=== PATIENT | female | born 1960 | race Caucasian/White ===

== ENCOUNTER → 2019-07-31 | Day surgery (SDC) | payer BC ==
[2019-07-31 13:40] VITALS: RESP 16
[2019-07-31 16:01] VITALS: BP 163/95; PULSE 86; TEMP 97.6
--- NOTE | 2019-07-31 17:10 | MM ---
EXAMINATION TYPE: MG stereo VAD BX LT MG stereo VAD BX addl LT DATE OF EXAM: 07/31/2019 COMPARISON: 07/19/2019 and 01/05/2017 CLINICAL HISTORY: 59-year-old female referred for stereotactic core needle biopsy of extensive left b reast microcalcifications. TECHNIQUE: Stereotactic guided core biopsy of 2 sites in the left breast. FINDINGS: The procedure of stereotactic guided core biopsy was explained to the patient. Benefits, a lternatives, and risks were discussed. An informed consent was then obtained. Multicentric microcalcifications are present in the left breast. SITE A: Posterior LOQ: Dominant group located in the posterior lower outer quadrant is targeted first . CC from below approach is utilized. I performed the localization, then surgeon, Dr. Luis taveras ormed the remainder of the procedure. A vacuum assisted biopsy gun was used to obtain multiple core samples. A secure ary clip was placed. SITE B: Anterior Medial: Second site was chosen based on its distance and different quadrant from the first site. CC from below approach is utilized. I performed the localization, then surgeon, Dr. Helen Rodrigues performed the remainder of the procedure. A vacuum assisted biopsy gun was used to obtain mul tiple core samples. A Trimark clip was placed. The patient tolerated the procedure well without any immediate complication. The patient was kept in the radiology department for short stay after the procedure and then discharged home in stable condi tion. Targeted calcifications are identified in both specimen mammograms. Post biopsy mammogram shows the clips to appear in satisfactory position relative to the targeted are a of concern on the preprocedure images. The clips are by approximately 6 cm though the ex tent of calcifications measures up to 10 cm. IMPRESSION: SUCCESSFUL, UNCOMPLICATED STEREOTACTIC GUIDED CORE BIOPSY OF 2 AREAS OF VERY SUSPICIOUS MULTICENTRIC CALCIFICATIONS IN THE LEFT BREAST. CLIPS ARE BY 6 CM THOUGH THE EXTENT OF CALCIFICATIONS ME ASURES UP TO 10 CM. FULL PATHOLOGY RESULTS TO FOLLOW.
--- NOTE | 2019-07-31 17:13 | P.OP ---
Date of Procedure: 07/31/19 Preoperative Diagnosis: Mammographic area of microcalcifications of concern in the left breast diffuse throughout the breast with a more focal area in the lower outer aspect of the left breast Postoperative Diagnosis: Same Procedure(s) Performed: Stereotactic core biopsy of 2 sites of concern of microcalcifications in the left breast Anesthesia: local Surgeon: Dorina Mancuso Estimated Blood Loss (ml): 0 Pathology: other (Breast tissue from 2 sites both with microcalcifications; site A is left lower outer marked with a secure markSite B is left medial anterior marked with a try ary) Condition: stable (2 sites of biopsy left breast, left outer site a marked with secure ary Site B medial anterior left marked with a tri-ary) Disposition: same day Indications for Procedure: Microcalcifications left breast Operative Findings: Diffuse microcalcifications left breast with a more focal area in the lower outer aspect Description of Procedure: Jeremy is a 59-year-old white female who on mammogram was noted to have diffuse microcalcifications through the left breast. Multifocal area was noted in the lower outer aspect and biopsy was recommended. Risks and benefits of stereotactic core biopsy were discussed with the patient and she wished to proceed. The patient was taken to the stereotactic core biopsy room and positioned prone on the low. Table. [employer] Handicapper film was obtained and a CC from below fashion, the area of more focal calcifications in the lower outer aspect of the left breast was identified. The area was targeted. The breast was prepped using Betadine. A 19-gauge vacuum-assisted core rotated biopsy needle was utilized to obtain the specimens. 10 mL of 1% lidocaine was used to anesthetize the area. After the needle was fired confirmation was in the correct location was obtained radiographically. multiple core biopsies were obtained. Radiograph of the specimen revealed that the area had been adequately sampled. A secure ary clip was left behind. This was designated as site A. Site A/left lower outer breast/marked with secure ary The anterior medial aspect of the breast was sampled following this. This was a more remote area of calcifications to the more focal site but felt to be indicative of the other calcifications throughout the breast. The approach was CC from below. The area was visualized on the green plumber film. The area was targeted. The breast was prepped using Betadine. 1% lidocaine was used to anesthetize the area of concern. 10 mL a 9-gauge vacuum-assisted core rotating biopsy needle was driven to the correct coordinates. The needle was fired and radiographs revealed that the needle was in the correct location. Core biopsies were obtained. Radiograph the specimen revealed. Concerta been adequately sampled. A try ary marker was placed. Site B/medial anterior left breast/marked with tri ary The patient tolerated the procedure in stable condition. Pathology specimens were sent to pathology. Patient will follow with Dr. Smith in 1 week. site A /left lower quadrant /marked with secure ary Site B/ medial anterior left breast/ marked with tri ary
== END ==
LOC: RADMAMWWP 13:18
PROVIDERS: ATTEND Surgery
DX: C50.512 Malignant neoplasm of lower-outer quadrant of left female breast (principal)
CPT/HCPCS: 88305; 88342; 88341; 19081; 19082; A4648; J2001

== ENCOUNTER → 2019-08-10 | Outpatient (CLI) | payer BC ==
[2019-08-10 15:37] VITALS: BP 188/123; PULSE 90; RESP 18; TEMP 97.8
--- NOTE | 2019-08-10 16:25 | P.PN ---
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 The area of abnormalities and approximately 10 cm. After review of the mammogram and discussion with the patient is felt that a mastectomy is the best option. We have discussed skin sparing versus nipple sparing mastectomy. We have also discussed mastectomy without reconstruction. The patient is uncertain as to whether she wants to pursue reconstruction. The patient is also concerned about having BRCA1 testing as her mother of breast cancer and had breast cancer twice. Her case was discussed with Dr. Sanchez and she is going to have blood drawn for BRCA1 testing today. She is going to be scheduled for an appointment Dr. Montes from plastic surgery. She is going to follow-up. 3 weeks. Objective - Vital Signs Vital signs: Vital Signs Temp 97.8 F 08/10/19 15:31 Pulse 90 08/10/19 15:31 Resp 18 08/10/19 15:31 BP 188/123 08/10/19 15:31 Pulse Ox 95 08/10/19 15:31 Intake & Output 08/09/19 08/10/19 08/10/19 18:59 06:59 18:59 Weight 81.647 kg - Exam BMI 30.9 - Constitutional General appearance: Present: average body habitus - EENT Eyes: Present: EOMI ENT: Present: hearing grossly normal - Respiratory Respiratory: bilateral: CTA - Cardiovascular Rhythm: regular Heart sounds: normal: S1, S2 - Musculoskeletal Musculoskeletal: Present: gait normal - Psychiatric Psychiatric: Present: A&O x's 3, appropriate affect, intact judgment & insight - Additional findings Additional findings: Left breast with mild ecchymosis at biopsy site No evidence of infection Assessment and Plan Assessment: Impression: 1. DCIS extensive left breast 2. Right mammogram no evidence of any radiographic lesions of concern 3. Family history mother of breast cancer Plan: 1. Patient expressed interest in BRCA1 testing, I have discussed this with Dr. Sanchez and patient is sent for blood to be drawn today for the testing 2. I discussed with the patient that insurance may not cover the BRCA1 testing she understands 3. Patient's case to be presented at tumor board 4. Patient to be scheduled for mastectomy uncertain as to whether she wants reconstruction 5. Appointment with plastic surgery Risks and benefits of surgical procedure were discussed with the patient. Secondary to the extensive nature of the DCIS I have recommended sentinel node biopsy possible axillary node dissection and a mastectomy. The patient has also been given the option of seeing plastic surgery which will be scheduled in the near future. We have discussed subpectoral implant reconstruction with skin sparing or nipple sparing mastectomy. Cc: Ting Garcia Time with Patient: Greater than 30
--- NOTE | 2019-08-30 08:25 | P.PN ---
Progress Note - Text Progress Note Date: 08/30/19 On the visit of 08-10-19, please note that Encounter: 40 minutes, greater than 50% of time spent in counseling and planning regarding extensive nature of DCIS treatment, and options.
== END ==
LOC: WWCWWP 15:23
PROVIDERS: ATTEND Surgery
DX: Z53.9 Procedure and treatment not carried out, unspecified reason (principal)

== ENCOUNTER → 2019-11-02 | Outpatient (CLI) | payer BC ==
--- NOTE | 2019-11-02 15:52 | P.PN ---
Subjective Progress Note Date: 11/02/19 Principal diagnosis: DCIS left breast Cady is a 59-year-old white female who had a routine screening mammogram performed on 2419. This revealed numerous calcifications within the left breast. She was seen in consultation for this for Dr. Scott. She had an additional diagnostic studies the left breast performed which again revealed calcifications with some more focal area in the lower outer aspect of the left breast for which biopsy was recommended. No lesions of concern were identified in the right breast. The patient's last mammogram was in 2016 which did not show the calcifications. The patient did not feel any lumps masses or nodules in her breast for which she is concerned. She was not complaining of any pain in her breast. She had no complaint of any nipple discharge or skin changes. She did not complaining of any trauma or infection in the breast. Underwent Stereotactic Core Biopsy of 2 Sites of the Left Breast in July on the 2019. Pathology Revealed Intermediate Grade Ductal Carcinoma In Situ with Central Necrosis As Site a and Features Were Suspicious for but Not Diagnostic of Microinvasion, Pathology revealed Intermediate Grade Ductal Carcinoma In Situ with [place] Form Necrosis. The Nuclear Grade Was 3 This Is ER Positive [place] Positive Does Not Appear That HER-2/romain Studies Were Performed. Her genetic testing was negative. The patient has considered this and would like to have bilateral mastectomy performed. She understands that there may be no cancer in the right breast and still wishes this to be removed. Caffiene: 12 oz/day down from 20 oz/day nicotine: none chocolate: intermittently Family history: 1. Mother: breast cancer bilateral both ER+, mets to liver, at 78 dx. in 60's 2. maternal grandfather: colon cancer Hormonal History: menarche; 16 , 1 miscarrage; age at 32, breast fed: yes menopause: 58 BCP: 15 years hormones: none Surgical History: 1. cervical cone 2. Medical History: none Social: smoke: none alcohol: occasional drugs: Occasional to sleep edible marijuana - Constitutional Constitutional: Denies chills, Denies fever - EENT Eyes: denies blurred vision, denies pain Ears: deny: decreased hearing, tinnitus Ears, nose, mouth and throat: Reports headache, Denies sore throat - Breasts Breasts: bilateral: as per HPI - Cardiovascular Cardiovascular: Denies chest pain, Denies shortness of breath - Respiratory Respiratory: Denies cough, Denies 7 - Gastrointestinal Gastrointestinal: Denies abdominal pain, Denies diarrhea, Denies nausea, Denies vomiting - Genitourinary (Female) Genitourinary: Denies dysuria, Denies hematuria - Menstruation Menstruation: Reports postmenopausal - Musculoskeletal Musculoskeletal: Denies myalgias - Integumentary Integumentary: Denies pruritus, Denies rash - Neurological Neurological: Denies numbness, Denies weakness - Psychiatric Psychiatric: Denies anxiety, Denies depression - Endocrine Endocrine: Denies fatigue, Denies weight change - Hematologic/Lymphatic Comment: none - Allergic/Immunologic Allergic/Immunologic: Reports seasonal allergies Past Medical History Past Medical History: No Reported History History of Any Multi-Drug Resistant Organisms: None Reported Past Surgical History: Section Additional Past Surgical History / Comment(s): dilatation and curetagge Past Anesthesia/Blood Transfusion Reactions: No Reported Reaction Past Psychological History: No Psychological Hx Reported Past Alcohol Use History: Occasional Additional Past Alcohol Use History / Comment(s): quit 2004 Past Drug Use History: Marijuana Additional Drug Use History / Comment(s): marijuana occasional - Past Family History Mother Family Medical History: Cancer Additional Family Medical History / Comment(s): mother Breast Medications and Allergies Home Medications Medication Instructions Recorded Confirmed Type Budesonide/Formoterol Fumarate 2 puff INHALATION BID 07/24/19 07/27/19 History [Symbicort 160-4.5 Mcg Inhaler] Fexofenadine HCl [Karol Allergy] 180 mg PO DAILY 07/24/19 07/27/19 History Fluticasone Nasal [place] [Flonase 1 spray EA NOSTRIL DAILY 07/24/19 07/27/19 History Nasal [place]] Aspirin 81 mg PO DAILY 07/27/19 07/27/19 History Cholecalciferol [Vitamin D3 (25 2,000 unit PO DAILY 07/27/19 07/27/19 History Mcg = 1000 Iu)] Multivitamin [Multivitamins Adult 1 each PO DAILY 07/27/19 07/27/19 History Gummies] Allergies Allergy/AdvReac Type Severity Reaction Status Date / Time No Known Allergies Allergy Verified 07/27/19 10:41 Objective - Constitutional General appearance: Present: cooperative - EENT Eyes: Present: EOMI ENT: Present: hearing grossly normal - Neck Neck: Present: normal ROM - Respiratory Respiratory: bilateral: CTA - Cardiovascular Rhythm: regular Heart sounds: normal: S1, S2 - Gastrointestinal General gastrointestinal: Present: normal bowel sounds, soft - Integumentary Integumentary: Present: normal turgor - Musculoskeletal Musculoskeletal: Present: gait normal - Psychiatric Psychiatric: Present: A&O x's 3, appropriate affect, intact judgment & insight - Additional findings Additional findings: breast exam: BRA 38C inspection no nipple inversion, grade 2 ptosis palpation: right breast: Multi-positional exam fibrocystic changes, no dominant masses or nodules of concern Right axilla: No adenopathy of concern Left breast: Multiple position of exam fibrocystic changes, no dominant masses or nodules of concern Left axilla: No adenopathy of concern Assessment and Plan Assessment: Impression: 1. Left breast ductal carcinoma in situ extending over an approximately 10 cm area 2. Questionable microinvasion of ductal carcinoma in situ left breast 3. Right breast fibrocystic breast changes Plan: 1. Bilateral mastectomy skin sparing is immediate subpectoral implant reconstruction 2. [place] node injection left breast, left axillary sentinel node biopsy, possible left axillary node dyed section Risk and benefits of the procedure were discussed with the patient. These include but are not limited to bleeding, infection, possible reaction to the anesthetic. The patient understands the risk of the coronal virus and wishes to proceed. CC: DR. Scott encounter 30 minutes, > 50% of time spent on planning and counselling Time with Patient: Greater than 30
== END | disposition home or self-care (01) ==
LOC: WWCWWP 14:47
PROVIDERS: ATTEND Surgery
DX: Z53.9 Procedure and treatment not carried out, unspecified reason (principal)

== ENCOUNTER → 2019-11-09 | Outpatient (CLI) | payer BC | END | disposition home or self-care (01) | LOC: LABWHC1 14:16 | PROVIDERS: ATTEND Surgery | DX: Z11.59 Encounter for screening for other viral diseases (principal) ==

== ENCOUNTER 2019-11-13 08:00 | Observation (INO) | payer BC ==
[2019-11-09 16:32] VITALS: BMI 31.7
[~2019-11-13 08:00] MED LIST: DEXAMETHASONE SOD PHOSPHATE 10 MG/ML 1 ML VIAL IV ONE; HEPARIN SODIUM,PORCINE 5,000 UNIT/ML 1 ML VIAL SQ ONE; LACTATED RINGERS 1,000 ML IV SCH; LIDOCAINE 1% (10MG/ML) FOR IV START INTRADERMA PRN; ONDANSETRON 4 MG/2 ML VIAL IVP ONE; Pre Op ABX Message 1 EACH MISC MISCELLANE ONE; SCOPOLAMINE 1.5MG/72HR PATCH TRANSDERM ONE
[2019-11-13] MEDS ORDERED: ceFAZolin 2 GM in SODIUM CHLORIDE 0.9% 100 ML IVPB ONE (08:29)
[2019-11-13 09:03] LABS: Appearance,Urine Clear (Clear); Bacteria,Urine Rare /hpf; Bilirubin,Urine Negative (Negative); Blood,Urine Small (Negative); Color,Urine Light Yellow; Glucose,Urine (UA) Negative (Negative); Ketones,Urine Negative (Negative); Leukocyte Esterase,Urine Small (Negative); Mucus,Urine Rare /hpf; Nitrite,Urine Negative (Negative); PH, Urine 5.5 (5.0-8.0); Protein,Urine Negative (Negative); RBC,Urine 1 /hpf (0-5); Specific Gravity,Urine 1.011 (1.001-1.035); Squamous Epithelial Cell,Urine 1 /hpf (0-4); Urobilinogen,Urine <2.0 mg/dL (<2.0); WBC,Urine 3 /hpf (0-5)
[2019-11-13] MEDS ORDERED: MIDAZOLAM 2 MG/2 ML VIAL IVP ONE (09:17)
[2019-11-13] MEDS ORDERED: fentaNYL (PF) 50 MCG/ML 2 ML AMP IVP ONE (09:17)
[2019-11-13] MEDS ORDERED: MIDAZOLAM 2 MG/2 ML VIAL ONE (09:27)
[2019-11-13] MEDS ORDERED: ePHEDrine SULFATE/0.9% NACL/PF 50 MG/5 ML SYRINGE IV ONE (09:27)
[2019-11-13] MEDS ORDERED: PROPOFOL 10 MG/ML 20 ML VIAL IV ONE (09:27)
[2019-11-13] MEDS ORDERED: SUCCINYLCHOLINE CHLORIDE 100 MG/5 ML SYR IV ONE (09:27)
[2019-11-13] MEDS ORDERED: fentaNYL (PF) 50 MCG/ML 2 ML AMP ONE (09:27)
[2019-11-13] MEDS ORDERED: LIDOCAINE 1% INJ 10MG/ML (20 ML MDV) ONE (09:27)
[2019-11-13] MEDS ORDERED: HYDROmorphone (PF) 1 MG/ML ONE (09:27)
[2019-11-13] MEDS ORDERED: ROPIVACAINE 5 MG/ML 30 ML VIAL ONE (09:27)
--- NOTE | 2019-11-13 09:30 | P.ANPRN ---
Procedure Note - Anesthesia - Nerve Block Performed Bilateral Pec 1 and Pec 2 Single Time Out Performed: Yes Date of Procedure: 11/13/19 Procedure Start Time: :17 Procedure Stop Time: :27 Location of Patient: PreOp Indication: Acute Post-Operative Pain, Requested by Surgeon Sedation Type: Sedate with meaningful contact maintained Preparation: Sterile Prep Position: Supine Catheter: None Needle Types: Pajunk Needle Gauge: 21 Ultrasound used to visualize needle placement: Yes Ultrasound used to observe medication spread: Yes Injectate: 0.5% Ropivacaine (see comment for volume) (ropivacaine 0.5% 20 CC + DECADRON 4MG--- PER SIDE. 10 CC INJECTED IN PECS 1 PLANE, 10 CC IN PECS 2 PLANE) Blood Aspirated: No Pain Paresthesia on Injection Noted: No Resistance on Injection: Normal Image Stored and Saved: Yes Events: Uneventful and Well Tolerated
--- NOTE | 2019-11-13 09:39 | NM ---
EXAMINATION TYPE: NM sentinel node injection DATE OF EXAM: 11/13/2019 COMPARISON: Left breast biopsy dated 07/31/2019 HISTORY: Biopsy-proven left breast cancer with request for sentinel node injection TECHNIQUE AND FINDINGS: The procedure of sentinel lymph node injection was explained to the patient. The benefits, alternatives, and risks were discussed. An informed consent was then obtained. Overlying skin is cleaned with sterile alcohol. Following this, 501 uCi Tc99m Tilmanocept was inject ed in the upper outer aspect of the left nipple intradermally. The patient tolerated the procedure well without any immediate complication. The patient was kept in the radiology department for short stay after the procedure and then taken to surgery for surgical p rocedure what is presumed intraoperative gamma probe will be used for sentinel lymph node detection. IMPRESSION: Left breast radiotracer injection for sentinel node localization as above.
[2019-11-13] MEDS ORDERED: LACTATED RINGERS 1,000 ML IV ONE ×3 (09:56→13:14)
--- NOTE | 2019-11-13 09:56 | P.NAPBC ---
NAPBC Queries - NAPBC Queries Was patient's case review presented at [facility] tumor board? If no, comment.: Yes Was patient's pathology reviewed at [facility]? If no, comment.: Yes Was breast conservation surgery offered? If no, comment.: No ( DCIS with extensive mamographic changes) Was sentinel node biopsy offered? If no, comment.: Yes Was diagnosis confirmed by percutaneous core biopsy? If no, comment.: Yes Is patient mastectomy patient?: Yes Was a preop referral to reconstructive surgeon offered?: Yes Clinical Stage: stage 0
[2019-11-13] MEDS ORDERED: NALOXONE 0.4 MG/ML 1 ML VIAL IV PRN (12:20)
[2019-11-13] MEDS ORDERED: HYDROmorphone 0.5 MG/0.5 ML SYRINGE IVP PRN (12:20)
--- NOTE | 2019-11-13 12:20 | P.OP ---
Date of Procedure: 11/13/19 Preoperative Diagnosis: Left breast DCIS, right breast fibrocystic breast changes Postoperative Diagnosis: Same Procedure(s) Performed: Bilateral skin sparing mastectomy, left sentinel node biopsy Anesthesia: AZUL Surgeon: Dorina Mancuso Estimated Blood Loss (ml): 20 IV fluids (ml): 1,500 Pathology: other (bilateral breast tissue, sentinal node biopsy left) Condition: stable Disposition: floor Indications for Procedure: Extensive DCIS left breast Operative Findings: Dense breast tissue bilaterally Description of Procedure: Cady is a 59-year-old white female who had a biopsy-proven DCIS of the left breast. There were extensive suspicious microcalcifications and the biopsy bordered on possible microinvasion. She opted for bilateral mastectomy with subpectoral implant reconstruction. [place] node biopsy and the left was recommended. The patient was taken to the operating room following removal, and injection of the periareolar region on the left for lymphatic mapping. The breast were prepped and draped in a sterile fashion as well as the left axilla. The right breast was approached initially. A circumareolar incision was made. Skin flaps were developed down to the pectoralis major muscle circumferentially. Hemostasis was attained using electrocautery device as well as the Harmonic scalpel. After dissection had been performed to the pectoralis muscle the breast was removed from medial to lateral being careful to maintain hemostasis using electrocautery device. Small vessel was identified and this was oversewn with a 3-0 Vicryl suture. Following this after assured that hemostasis was attained the wound was packed using a moist lap sponge. The left breast which was the side with the DCIS was then approached. The sentinel node biopsy was performed initially. Small incision was made in the axilla after the area of greatest radioactivity was identified. Dissection was performed down to this area. The radio-active lymph node was identified and rem jennifer. The 10 second count on the radioactive lymph node was approximately 450. The background count was minimal. A larger palpable node was identified and removed as well. After being assured that hemostasis was obtained the wound was well irrigated. A left breast circumareolar incision was then performed. Skin flaps were developed down to the pectoralis major muscle. The breast was removed from medial to lateral off the pectoralis muscle. Hemostasis was attained using the electrocautery device as well as the Harmonic scalpel. At the termination of this the wound was well irrigated and examined for hemostasis. After being assured that hemostasis was attained several smaller vessels were oversewn using a 3-0 Vicryl suture. The area of the axilla was closed using deep 3-0 Vicryl willis ture followed by 40 skin Monocryl suture. Both mastectomy sites were again examined for hemostasis, a small amount of additional tissue was removed from the right side. After being assured that hemostasis was attained Dr. Montes entered for breast reconstruction.
[2019-11-13] MEDS: ONDANSETRON 4 MG/2 ML VIAL IVP PRN ×2 (14:08→22:59)
[2019-11-13] MEDS: HYDROmorphone 0.5 MG/0.5 ML SYRINGE IVP PRN ×2 (14:08→18:04)
[2019-11-13] MEDS: HEPARIN SODIUM,PORCINE 5,000 UNIT/ML 1 ML VIAL SQ SCH ×2 (15:55→22:59)
--- NOTE | 2019-11-13 16:11 | OP ---
OPERATIVE REPORT DATE OF PROCEDURE: 11/13/2019. SURGEON: Juni Williamson. PREOPERATIVE DIAGNOSES: 1. Acquired loss of right and left breast. 2. Breast cancer, left breast. POSTOPERATIVE DIAGNOSES: 1. Acquired loss of right and left breast. 2. Breast cancer, left breast. OPERATIVE PROCEDURES: 1. Immediate insertion of tissue cnc applications engineer for breast reconstruction, right breast following mastectomy with subsequent outpatient expansion. 2. Immediate breast reconstruction of left breast with insertion of tissue cnc applications engineer and subsequent outpatient expansion following mastectomy. 3. Implantation of reconstructive graft for right and left breast reconstruction. OPERATIVE INDICATIONS: The patient is a 59-year-old female with ductal carcinoma in situ of the left breast. She was referred to my care as the patient plans bilateral mastectomy procedures. The patient was seen and evaluated in consultation prior to the COVID 19 pandemic, unfortunately her surgery has been rescheduled several times due to the pandemic. She is now ready to proceed with her bilateral mastectomy procedure, sentinel lymph node surgery for the left knee and immediate reconstruction following the mastectomies. The patient understands this is a staged reconstructive technique and there are potential risks and complications with today's surgery and future surgeries. She has requested I perform the surgery. OPERATIVE PROCEDURE SUMMARY: The patient is seen presurgical area, markings made. procedure reviewed. All questions answered. She was transported to the operative room where she was placed in supine position. Following induction of general endotracheal anesthesia, the patient is prepped and draped in usual fashion. Dr. Mancuso and her surgical team then proceeded with the right simple mastectomy, left simple mastectomy and left sentinel lymph node excision. Once those procedures were complete, I then entered the operative operating room. All sponge and needle counts and prior procedure were correct. New instruments were obtained and new drapes placed around the periphery of the patient. She was under general endotracheal anesthesia in supine position, laparotomy pads placed in the right and left mastectomy wounds were removed. There was no active bleeding. Both cavities were irrigated. Reconstruction was initiated on the right side, identifying the pectorals major muscle joined the chest wall lateral aspect, loose areolar connective tissue divided with cautery allowing entry into the potential plane between the pectorals major and minor muscles which was bluntly developed. Medial attachment fibers of the pectorals major to ribs were released with cautery and all inferior attachments for sufficient muscle coverage of the cnc applications engineer. Additional muscle tissue was required inferomedially, rectus abdominis muscle and fascia inferoaterally, external abdominal oblique muscle fascia and laterally serrated anterior muscle fascia. Once a sufficient size submuscular pocket was created, dissection stopped. Irrigation was performed. Hemostasis was excellent. The site was packed open with 2 laparotomy sponges, attention is turned towards the left side. Again, the left pectorals major muscle was identified where it joined the chest wall, lateral aspect, loose areolar connective tissue divided with cautery. This allowed entry into the potential plane between the pectorals major and minor muscles and bluntly developed. Medial attachment fibers of the pectorals major muscle to ribs and all inferior attachment fibers to the ribs were released, again for sufficient submuscular coverage of the cnc applications engineer. Additional muscle tissue was recruited, inferomedially rectus abdominal muscle and fascia, inferolaterally external abdominal oblique muscle fascia and laterally serrated anterior muscle fascia were all developed. Once a sufficient size submuscular pocket was created, dissection stopped, irrigation performed. Hemostasis was excellent. The cavities were sized, minor adjustments made to optimize symmetry. Once this was completed, gloves changed. The tissue cnc applications engineer was opened on the field. Both expanders were from the [employer], reference number [id number]. The right-sided serial number was [id number]. The left-sided serial number was [id number]. The right-sided device was placed first after first extracting all air and irrigating the cnc applications engineer 50 mL 0.9 normal saline instilled. The cnc applications engineer was inserted under direct vision and position optimized and then the left-sided cnc applications engineer inserted into the left reconstructive cavity in similar fashion. Good symmetrical placement was obtained. The muscle flap tissue on the right and left side could not be closed over the expanders without significant tension. Therefore SurgiMend reconstructive graft measuring 10 x 15 cm fenestrated and then was opened on the field. We vitalized room temperature saline, once ready divided into 2 equal portions through the midline and used to span the area where the muscle could not be approximated without undue tension. In a modified inferior lateral sling technique, the SurgiMend was placed over each cnc applications engineer and underneath the muscle flap tissue. The muscle flap tissue was advanced over the SurgiMend until achieving minimal tension and then sutured in place using interrupted and short running 3-0 Vicryl on each side. Complete coverage was now obtained. Additional irrigation performed. Hemostasis was excellent. A 19 round [place] channel drains were opened on the field and inserted into the surgical field and brought separate stab incisions in the right or left anterior lateral chest wall insertion, placed with 2-0 Prolene. The mastectomy circumareolar incisions were now closed using 2-0 Prolene continuous deep dermal pursestring suture followed by finer approximation of the epidermal edges with elissa. The drains were connected to close bulb suction patent. The surgical field was cleansed with saline, dried postoperative bandages placed using Kerlix squares and 3 Medipore tape, drain sponges as well. Steri-Strips were placed over the patient's left axillary lymph node dissection site and followed by Kerlix squares secured with tape. The patient was then awakened from anesthetic, extubated, and transferred to the recovery room in good condition stable vital signs. ESTIMATED BLOOD LOSS: 30 mL. There were no complications. MMODL / IJN: [id number] /
[2019-11-13] MEDS: SYMBICORT 160-4.5 MCG INHALER INHALATION SCH (20:44)
[2019-11-13] MEDS ORDERED: LISINOPRIL 10 MG TAB PO SCH (21:00)
[2019-11-13] MEDS: D5-0.45% NACL WITH KCL 20MEQ/L 1,000 ML IV SCH (21:49)
--- NOTE | 2019-11-13 22:11 | P.CONS ---
History of Present Illness - Reason for Consult Consult date: 11/13/19 Medical management Requesting physician: Dorina Martins - Chief Complaint Bilateral mastectomy - History of Present Illness Consultation: This is a very pleasant 59-year-old patient whose chronic stable medical conditions include hypertension, hyperlipidemia, mild persistent asthma. Patient had just finished a course of antibiotic for 3 days for UTI. Patient is found to have in situ carcinoma and today underwent bilateral mastectomy with expanders placed by Dr. Sánchez norman. Postprocedure patient has 2 YAHAIRA drains on both the sides. Pain is controlled. No nausea vomiting. No chest pain or shortness of breath. Laying in bed. Denies any fever and chills. No cardiac history. Patient's had made urine since the procedure. Review of systems: GEN.: None EYES: None HEENT: None NECK: None RESPIRATORY: None CARDIOVASCULAR: None GASTROINTESTINAL: None GENITOURINARY: None MUSCULOSKELETAL: None LYMPHATICS: None HEMATOLOGICAL: None PSYCHIATRY: None NEUROLOGICAL: None Past medical history to include: Hypertension, hyperlipidemia, persistent asthma, left breast cancer diagnosed in July of this year. Social history: Patient was as a dispatcher. . Does take marijuana sometimes for her insomnia. Physical examination: VITAL SIGNS: 97.5, 98, 18, 144/91, 97% on 1 L GENERAL: [BMI 31.9, laying in bed not in distress]. EYES: [Pupils equal. Conjunctiva kristina]l. HEENT: [External appearance of nose and ears normal, oral cavity grossly normal]. NECK: [JVD not raised; masses not palpable]. HEART: [First and second heart sounds are normal; no edema]. LUNGS:[ Respiratory rate normal; clear to auscultation]. CHEST wall: Dressing over the chest wall with YAHAIRA drains on either side ABDOMEN: [Soft, nontender, liver spleen not palpable, no masses palpable]. PSYCH: [Alert and oriented x3; mood and affect kristina]l. NEUROLOGICAL: [Cranial nerves grossly intact; no facial asymmetry, power and sensation grossly intact]. LYMPHATICS: [No lymph nodes palpable in the axilla and neck] INVESTIGATIONS, reviewed in the clinical context: UA positive for leukoesterase small, COVID-19 PCR-not detected Assessment: -Bilateral mastectomy with tissue spindraw operator. For in situ carcinoma. -Obesity BMI 31.9 -Essential hypertension -Hyperlipidemia -Mild persistent asthma Plan: Care was discussed with the patient. Questions answered. Patient comfortable. Patient's inability to be resumed. Patient is to follow the family doctor upon discharge. Thank you Dr. Martins Past Medical History Past Medical History: Asthma, Cancer, Hyperlipidemia, Hypertension Additional Past Medical History / Comment(s): Allergy related asthma. Hx cervical cancer insitu 1988 est. Cancer of lt breast 07/2019. Borderline elev cholesterol. UTI diagnosed 11/08/19, on 3 day AB. History of Any Multi-Drug Resistant Organisms: None Reported Past Surgical History: Section Additional Past Surgical History / Comment(s): D&C. Dental proc. Cervical conization. RK elton eyes. Colonoscopy. bilateral Mastectomy Past Anesthesia/Blood Transfusion Reactions: Postoperative Nausea & Vomiting (PONV) Additional Past Anesthesia/Blood Transfusion Reaction / Comm: PONV W/ gas given for dental proc Past Psychological History: No Psychological Hx Reported Smoking Status: Former smoker Past Alcohol Use History: Occasional Additional Past Alcohol Use History / Comment(s): Smoked at age 20, < 1/2 ppd, quit 2004 Past Drug Use History: Marijuana Additional Drug Use History / Comment(s): marijuana occasional for sleep - Past Family History Mother Family Medical History: Cancer Additional Family Medical History / Comment(s): mother Breast Medications and Allergies Home Medications Medication Instructions Recorded Confirmed Type Budesonide/Formoterol Fumarate 2 puff INHALATION BID 07/24/19 11/13/19 History [Symbicort 160-4.5 Mcg Inhaler] Fexofenadine HCl [Karol Allergy] 180 mg PO DAILY 07/24/19 11/09/19 History Cholecalciferol [Vitamin D3 (25 2,000 unit PO DAILY 07/27/19 11/13/19 History Mcg = 1000 Iu)] Fluticasone Furoate [Flonase 1 spray EA NOSTRIL DAILY 11/09/19 11/09/19 History Sensimist] Lisinopril [Prinivil] 10 mg PO DAILY 11/09/19 11/09/19 History Exemestane [Aromasin] 25 mg PO DAILY 11/12/19 11/12/19 History Allergies Allergy/AdvReac Type Severity Reaction Status Date / Time acetaminophen [From Vicodin] AdvReac Nausea & Verified 11/13/19 08:23 Vomiting hydrocodone [From Vicodin] AdvReac Nausea & Verified 11/13/19 08:23 Vomiting Physical Exam Vitals: Vital Signs Temp Pulse Resp BP Pulse Ox 11/13/19 21:48 150/83 11/13/19 19:30 97.5 F L 98 18 144/91 97 11/13/19 18:40 99 18 155/92 89 L 11/13/19 17:40 94 18 139/89 95 11/13/19 16:40 94 18 134/85 94 L 11/13/19 16:11 91 18 164/87 96 11/13/19 15:45 89 18 147/90 98 11/13/19 15:30 84 18 148/86 99 11/13/19 15:15 79 18 145/84 98 11/13/19 15:00 87 18 135/87 100 11/13/19 14:45 98 F 76 18 136/83 98 11/13/19 14:17 79 16 132/77 99 11/13/19 14:02 80 16 128/73 100 11/13/19 14:00 18 11/13/19 13:46 90 16 126/72 98 11/13/19 13:35 97.3 F L 93 14 130/75 94 L 11/13/19 09:25 76 17 184/95 100 11/13/19 08:27 97.7 F 89 17 180/95 98 Intake and Output 11/13/19 11/13/19 11/13/19 06:59 14:59 22:59 Intake Total 2900 Output Total 295 1598 Balance 2605 -1598 Intake: IV 2900 Output: Drainage 40 58 yahaira left 20 38 yahaira right 20 20 Urine 225 1540 Estimated Blood Loss 30 Other: # Voids 1 Weight 84.397 kg 84.397 kg Results Labs: Abnormal Lab Results - Last 24 Hours (Table) 11/13/19 Range/Units 08:35 Urine Blood Small H (Negative) Ur Leukocyte Esterase Small H (Negative) Urine Bacteria Rare H (None) /hpf Urine Mucus Rare H (None) /hpf
[2019-11-13] MEDS: HYDROcodone/APAP 5-325MG 1 EACH TAB PO PRN (22:59)
[2019-11-14] MEDS: HYDROcodone/APAP 5-325MG 1 EACH TAB PO PRN ×2 (03:51→09:57)
[2019-11-14] MEDS: HEPARIN SODIUM,PORCINE 5,000 UNIT/ML 1 ML VIAL SQ SCH (08:04)
[2019-11-14 08:08] LABS: Basophils % (A) 0 %; Eosinophils # (A) 0.1 k/uL (0-0.7); Eosinophils % (A) 1 %; HCT 44.3 % (34.0-46.0); Lymphocytes # (A) 1.1 k/uL (1.0-4.8); Lymphocytes % (A) 8 %; MCHC 31.6 g/dL (31.0-37.0); MCV 94.8 fL (80.0-100.0); Mean Platelet Volume 7.4; Monocytes # (A) 0.9 k/uL (0-1.0); Monocytes % (A) 6 %; Neutrophils # (A) 12.7 k/uL (1.3-7.7); Neutrophils % (A) 85 %; Platelet Count 255 k/uL (150-450); RBC 4.67 m/uL (3.80-5.40); RDW 12.3 % (11.5-15.5); WBC 14.9 k/uL (3.8-10.6)
[2019-11-14 08:43] VITALS: RESP 18
[2019-11-14 08:57] VITALS: BP 148/81; PULSE 88; TEMP 98.4
[2019-11-14] MEDS ORDERED: Exemestane [Aromasin] 25 MG PO SCH (09:00)
[2019-11-14] MEDS: SYMBICORT 160-4.5 MCG INHALER INHALATION SCH (09:09)
[2019-11-14] MEDS: D5-0.45% NACL WITH KCL 20MEQ/L 1,000 ML IV SCH (10:07)
--- NOTE | 2019-11-14 11:08 | P.PN ---
Subjective Progress Note Date: 11/14/19 Principal diagnosis: Bilateral mastectomies with subpectoral implant reconstruction Cady is a 59-year-old white female status post bilateral mastectomies with subpectoral implant reconstruction and left sentinel node biopsy postop day #1. She has no complaints at this time. She is tolerating her diet without difficulty. Objective - Vital Signs Vital signs: Vital Signs Temp 98.4 F 11/14/19 08:11 Pulse 88 11/14/19 08:11 Resp 18 11/14/19 08:15 BP 148/81 11/14/19 08:11 Pulse Ox 99 11/14/19 08:11 Intake & Output 11/13/19 11/14/19 11/14/19 18:59 06:59 18:59 Intake Total 2900 Output Total 753 2175 545 Balance 2147 -2175 -545 Weight 84.397 kg Intake: IV 2900 Output: Drainage 98 85 45 yahaira left 58 35 15 yahaira right 40 50 30 Urine 625 2090 500 Estimated Blood Loss 30 Other: Voiding Method Toilet # Voids 2 - Exam BMI 31.9 - Constitutional General appearance: Present: cooperative - EENT Eyes: Present: EOMI ENT: Present: hearing grossly normal - Neck Neck: Present: normal ROM - Respiratory Respiratory: bilateral: CTA - Cardiovascular Rhythm: regular Heart sounds: normal: S1, S2 - Integumentary Integumentary Comment(s): Incisions clean and dry no evidence of erythema or infection YAHAIRA drains serous output - Psychiatric Psychiatric: Present: A&O x's 3, appropriate affect, intact judgment & insight - Labs CBC & Chem 7: 11/14/19 07:30 Labs: Abnormal Lab Results - Last 24 Hours (Table) 11/14/19 Range/Units 07:30 WBC 14.9 H (3.8-10.6) k/uL Neutrophils # 12.7 H (1.3-7.7) k/uL Assessment and Plan Assessment: Impression/plan: 1. Postop day #1 bilateral mastectomies with subpectoral implant reconstruction 2. Patient stable medically 3. Discharge home to be followed as outpatient 4. Follow-up with Dr. Smith in 1 week 5. Follow-up with Dr. Montes as per his office
--- NOTE | 2019-11-14 11:12 | P.DS ---
Providers Date of admission: 11/13/19 23:04 Expected date of discharge: 11/14/19 Attending physician: Dorina Mancuso Consults: 11/13/19 12:20 Consult Physician Routine Consulting Provider: Jarad Davila Consult Reason/Comments: medical managment Do you want consulting provider notified?: Yes Primary care physician: [facility] Course: Cady is a 59-year-old white female status post bilateral mastectomies with subpectoral implant reconstruction. She is done well postop and is being discharged home on postop day #1. Assessment: Patient doing well Procedures: Patient is status post bilateral mastectomies with subpectoral implant reconstruction and left sentinel node biopsy Patient Condition at Discharge: Stable Plan - Discharge Summary Discharge Rx Participant: Yes New Discharge Prescriptions: No Action Fexofenadine HCl [Karol Allergy] 180 mg PO DAILY Budesonide/Formoterol Fumarate [Symbicort 160-4.5 Mcg Inhaler] 2 puff INHALATION BID Cholecalciferol [Vitamin D3 (25 Mcg = 1000 Iu)] 2,000 unit PO DAILY Fluticasone Furoate [Flonase Sensimist] 1 spray EA NOSTRIL DAILY Lisinopril [Prinivil] 10 mg PO DAILY Exemestane [Aromasin] 25 mg PO DAILY Discharge Medication List Budesonide/Formoterol Fumarate [Symbicort 160-4.5 Mcg Inhaler] 2 puff INHALATION BID 07/24/19 [History] Fexofenadine HCl [Karol Allergy] 180 mg PO DAILY 07/24/19 [History] Cholecalciferol [Vitamin D3 (25 Mcg = 1000 Iu)] 2,000 unit PO DAILY 07/27/19 [History] Fluticasone Furoate [Flonase Sensimist] 1 spray EA NOSTRIL DAILY 11/09/19 [History] Lisinopril [Prinivil] 10 mg PO DAILY 11/09/19 [History] Exemestane [Aromasin] 25 mg PO DAILY 11/12/19 [History] Follow up Appointment(s)/Referral(s): Dorina Mancuso MD [STAFF PHYSICIAN] - 1 Week Activity/Diet/Wound Care/Special Instructions: Do not drive until seen by Dr. Smith May shower after 48 hours Teaching drain care/drain and record output every 24 hours and as needed Discharge Disposition: HOME SELF-CARE
--- NOTE | 2019-11-14 20:49 | P.PN ---
Progress Note - Text Progress Note Date: 11/14/19 - Chief Complaint Bilateral mastectomy - History of Present Illness Consultation: This is a very pleasant 59-year-old patient whose chronic stable medical conditions include hypertension, hyperlipidemia, mild persistent asthma. Patient had just finished a course of antibiotic for 3 days for UTI. Patient is found to have in situ carcinoma and today underwent bilateral mastectomy with expanders placed by Dr. Sánchez norman. Postprocedure patient has 2 CRISS drains on both the sides. Pain is controlled. No nausea vomiting. No chest pain or shortness of breath. Laying in bed. Denies any fever and chills. No cardiac history. Patient's had made urine since the procedure. Today-laying in bed. Feeling well. Has been out of bed. Did tolerate her breakfast. Her nausea vomiting. Pain is controlled. CRISS drains in place. Review of systems: Was done for constitutional, cardiovascular, GI, pulmonary. relevant finding as above Current medications reviewed in today's electronic records Physical examination: VITAL SIGNS: 98.4, 88, 16, 140-81, 99% on room air GENERAL: Laying in bed, comfortable EYES: [Pupils equal. Conjunctiva kristina]l. HEENT: [External appearance of nose and ears normal, oral cavity grossly normal]. NECK: [JVD not raised; masses not palpable]. HEART: [First and second heart sounds are normal; no edema]. LUNGS:[ Respiratory rate normal; clear to auscultation]. CHEST wall: Dressing over the chest wall with CRISS drains on either side ABDOMEN: [Soft, nontender, liver spleen not palpable, no masses palpable]. PSYCH: [Alert and oriented x3; mood and affect kristina]l. INVESTIGATIONS, reviewed in the clinical context: White count 14.9, hemoglobin 14 Previous testing COVID-19 PCR-not detected Assessment: -Bilateral mastectomy with tissue compensation and benefits administrator. For in situ carcinoma. -Obesity BMI 31.9 -Essential hypertension -Hyperlipidemia -Mild persistent asthma -Leukocytosis, reactive to surgery. No crackle evidence of infection. Plan: -Patient doing well. If Discharge then follow-up with his family doctor. Home medications to continue. Thank you Dr. Martins
[2019-11-14] MEDS ORDERED: LISINOPRIL 10 MG TAB PO SCH (21:00)
--- NOTE | 2019-11-19 13:54 | CDI ---
The node was deep. Date: 11.19.19 CDS/Circular Stuffer Name: Chantell Jarquin Phone: If any questions, call Carol Leon Pipe Installer at [phone] Patient Name: Cady Agee Admit Date: 11.13.19 Discharge Date: 11.13.19 ATTENTION: The [facility] Coding Staff appreciate your assistance in clarifying documentation. Please respond to the clarification below the line at the bottom and electronically sign. The [facility] Coding staff will review the response and follow-up if needed. Please note: Queries are made part of the Legal Health Record. If you have any questions, please contact the Pipe Installer. Dear Dr. Mancuso Please document whether the biopsies of lymph nodes and sentinel node biopsy on the Left was: ___Deep ___Superficial/simple Thank you for your kind consideration. MTDD
== END 2019-11-14 12:31 | disposition home or self-care (01) ==
LOC: OR 08:00 → 6PED 14:18 → OR 23:17
PROVIDERS: ADMIT Surgery; ATTEND Surgery
DX: D05.12 Intraductal carcinoma in situ of left breast (principal); N60.11 Diffuse cystic mastopathy of right breast; N60.12 Diffuse cystic mastopathy of left breast; J30.2 Other seasonal allergic rhinitis; E78.5 Hyperlipidemia, unspecified; I10 Essential (primary) hypertension; J45.30 Mild persistent asthma, uncomplicated; G47.00 Insomnia, unspecified; D72.829 Elevated white blood cell count, unspecified; E66.9 Obesity, unspecified; Z68.31 Body mass index [BMI] 31.0-31.9, adult; Z78.0 Asymptomatic menopausal state; Z98.890 Other specified postprocedural states; Z79.51 Long term (current) use of inhaled steroids; Z79.899 Other long term (current) drug therapy; Z79.82 Long term (current) use of aspirin; Z87.440 Personal history of urinary (tract) infections; Z85.41 Personal history of malignant neoplasm of cervix uteri; E78.00 Pure hypercholesterolemia, unspecified; Z91.89 Other specified personal risk factors, not elsewhere classified; Z87.891 Personal history of nicotine dependence; Z88.5 Allergy status to narcotic agent; Z80.3 Family history of malignant neoplasm of breast; Z80.0 Family history of malignant neoplasm of digestive organs
CPT/HCPCS: 19303; 19357; 38525; 94640 ×3; 64450; 76942; 85025; 81001; 88342; 88307; 88341; 38792; G0378 ×2; A9520; J2250; J1644 ×2; J1100; J0690 ×3; J2405; J2001; J3010; J1170 ×2; J2795; J0330; J2704; 64415

== ENCOUNTER → 2019-11-23 | Outpatient (CLI) | payer BC ==
[2019-11-23 16:13] VITALS: BP 139/88; PULSE 91; RESP 16; TEMP 98.4
--- NOTE | 2019-11-23 16:18 | P.PN ---
Subjective Progress Note Date: 11/23/19 Principal diagnosis: Stage 0 left breast cancer, status post bilateral mastectomy and subpectoral implants Cady is a 59-year-old white female status post bilateral mastectomy and subpectoral implant placement on 6219. She has no complaints related to the procedure. Drainage is serous in nature. She saw Dr. Sanchez from medical oncology and is not recommended to have any hormone clare or any chemotherapy. She will follow with Dr. Thompson on Tuesday. Objective - Constitutional General appearance: Present: average body habitus - EENT Eyes: Present: EOMI ENT: Present: hearing grossly normal - Respiratory Respiratory: bilateral: CTA - Cardiovascular Rhythm: regular Heart sounds: normal: S1, S2 - Integumentary Integumentary Comment(s): incisions clean and dry - Musculoskeletal Musculoskeletal: Present: gait normal - Psychiatric Psychiatric: Present: A&O x's 3, appropriate affect, intact judgment & insight Assessment and Plan Assessment: Impression: 1. Status post bilateral subpectoral implants and mastectomies for DCIS left breast Plan: 1. Follow-up with Dr. Montes 2. Follow up here in 3 months CC: Dr. Scott
== END | disposition home or self-care (01) ==
LOC: WWCWWP 15:56
PROVIDERS: ATTEND Surgery
DX: Z53.9 Procedure and treatment not carried out, unspecified reason (principal)

== ENCOUNTER → 2020-02-22 | Outpatient (CLI) | payer BC ==
[2020-02-22 14:54] VITALS: BP 151/90; PULSE 84; RESP 18; TEMP 98.1
--- NOTE | 2020-02-22 15:25 | P.PN ---
Subjective Progress Note Date: 02/22/20 Principal diagnosis: stage 0 breast cancer Cady is a 59-year-old white female who had a routine screening mammogram performed on 2419. This revealed numerous calcifications within the left breast. She was seen in consultation for this for Dr. Scott. She had an additional diagnostic studies the left breast performed which again revealed calcifications with some more focal area in the lower outer aspect of the left breast for which biopsy was recommended. No lesions of concern were identified in the right breast. She had left breast stereotactic core biopsy of 2 areas on . This revealed intermediate grade DCIS with comedonecrosis and a suspicious area of m icroinvasion at one of the sites. She underwent a bilateral mastectomy with immediate reconstruction November 13, 2019. The patient is pathology revealed in the right breast benign fibrocystic changes. In the left breast high-grade DCIS margins were negative. She had lymph nodes removed all negative for cancer. She did have any hormonal, chemo, or radiation therapy. She is planning to have the expanders removed and the permanent implants placed in the near future. She has no complaints related to her postoperative course. Caffiene: 12 oz/day down from 20 oz/day nicotine: none chocolate: intermittently Family history: 1. Mother: breast cancer bilateral both ER+, mets to liver, at 78 dx. in 60's 2. maternal grandfather: colon cancer Hormonal History: menarche; 16 , 1 miscarrage; age at 32, breast fed: yes menopause: 58 BCP: 15 years hormones: none Surgical History: 1. cervical cone 2. 3. bilateral mastectomy with reconstruction Medical History: none Social: smoke: none alcohol: occasional drugs: Occasional to sleep edible marijuana - Constitutional Constitutional: Denies chills, Denies fever - EENT Eyes: denies blurred vision, denies pain Ears: deny: decreased hearing, tinnitus Ears, nose, mouth and throat: Reports headache, Denies sore throat - Breasts Breasts: bilateral: as per HPI - Cardiovascular Cardiovascular: Denies chest pain, Denies shortness of breath - Respiratory Respiratory: Denies cough, - Gastrointestinal Gastrointestinal: Denies abdominal pain, Denies diarrhea, Denies nausea, Denies vomiting - Genitourinary (Female) Genitourinary: Denies dysuria, Denies hematuria - Menstruation Menstruation: Reports postmenopausal - Musculoskeletal Musculoskeletal: Denies myalgias - Integumentary Integumentary: Denies pruritus, Denies rash - Neurological Neurological: Denies numbness, Denies weakness - Psychiatric Psychiatric: Denies anxiety, Denies depression - Endocrine Endocrine: Denies fatigue, Denies weight change - Hematologic/Lymphatic Comment: none Objective - Vital Signs Vital signs: Vital Signs Temp 98.1 F 02/22/20 14:49 Pulse 84 02/22/20 14:49 Resp 18 02/22/20 14:49 BP 151/90 02/22/20 14:49 Pulse Ox 99 02/22/20 14:49 Intake & Output 02/21/20 02/22/20 02/22/20 18:59 06:59 18:59 Weight 81.647 kg - Exam BMI 30.9 - Constitutional General appearance: Present: cooperative - EENT Eyes: Present: EOMI ENT: Present: hearing grossly normal - Neck Neck: Present: normal ROM - Respiratory Respiratory: bilateral: CTA - Cardiovascular Rhythm: regular Heart sounds: normal: S1, S2 - Gastrointestinal General gastrointestinal: Present: normal bowel sounds, soft - Integumentary Integumentary: Present: normal turgor - Musculoskeletal Musculoskeletal: Present: gait normal - Psychiatric Psychiatric: Present: A&O x's 3, appropriate affect, intact judgment & insight - Additional findings Additional findings: Chest wall: Bilateral chest wall examination does not reveal any evidence of any recurrent disease. Patient has bilateral expanders and and there is no evidence of any infection or seroma Assessment and Plan Assessment: Impression: 1. Stage 0 left breast cancer 2. Status post bilateral mastectomy with immediate reconstruction 3. Nothing in the chest wall which were 1 interventional biopsy at this time Plan: 1. Continue to follow with Dr. Montes 2. Follow-up. In 4 months CC: Dr. Scott encounter 20 minutes, > 50% of time in planning and counselling
== END | disposition home or self-care (01) ==
LOC: WWCWWP 14:39
PROVIDERS: ATTEND Surgery
DX: Z53.9 Procedure and treatment not carried out, unspecified reason (principal)

== ENCOUNTER 2020-04-01 10:20 | Day surgery (SDC) | payer BC ==
[2020-03-28 11:40] VITALS: BMI 32.2
[~2020-04-01 10:20] MED LIST changes: -HEPARIN SODIUM,PORCINE 5,000 UNIT/ML 1 ML VIAL SQ ONE; +HYDROmorphone 0.5 MG/0.5 ML SYRINGE IVP PRN; +MIDAZOLAM 2 MG/2 ML VIAL IV PRN; -Pre Op ABX Message 1 EACH MISC MISCELLANE ONE; -SCOPOLAMINE 1.5MG/72HR PATCH TRANSDERM ONE
[2020-04-01] MEDS ORDERED: LIDOCAINE 1% INJ 10MG/ML (20 ML MDV) ONE (12:52)
[2020-04-01] MEDS ORDERED: METOPROLOL TARTRATE 5 MG/5 ML VIAL IVP ONE (12:52)
[2020-04-01] MEDS ORDERED: PROPOFOL 10 MG/ML 20 ML VIAL IV ONE (12:52)
[2020-04-01] MEDS ORDERED: MIDAZOLAM 2 MG/2 ML VIAL ONE (12:52)
[2020-04-01] MEDS ORDERED: ePHEDrine SULFATE/0.9% NACL/PF 50 MG/5 ML SYRINGE IV ONE (12:52)
[2020-04-01] MEDS ORDERED: fentaNYL (PF) 50 MCG/ML 2 ML AMP ONE (12:52)
[2020-04-01] MEDS ORDERED: SUCCINYLCHOLINE CHLORIDE 100 MG/5 ML SYR IV ONE (12:52)
[2020-04-01] MEDS ORDERED: LACTATED RINGERS 1,000 ML IV ONE (13:20)
[2020-04-01 15:42] VITALS: TEMP 97.1
[2020-04-01 16:33] VITALS: RESP 16
[2020-04-01 17:04] VITALS: BP 133/69; PULSE 70
--- NOTE | 2020-04-01 20:54 | OP ---
OPERATIVE REPORT DATE OF SURGERY: 04/01/2020. SURGEON: Dr. Juni Williamson. PREOPERATIVE DIAGNOSES: 1. Acquired loss, right and left breast. 2. Personal history of breast cancer. 3. Personal history of bilateral mastectomy. 4. Acquired deformity of right and left reconstructed breast. 5. Acquired loss of right and left breast inframammary folds. POSTOPERATIVE DIAGNOSES: 1. Acquired loss, right and left breast. 2. Personal history of breast cancer. 3. Personal history of bilateral mastectomy. 4. Acquired deformity of right and left reconstructed breast. 5. Acquired loss, right and left breast inframammary folds. OPERATIVE PROCEDURES: 1. Replace right breast tissue costume director with silicone breast implant for right breast reconstruction. 2. Revision right reconstructed breast. 3. Replace left breast tissue costume director with silicone breast implant for left breast reconstruction. 4. Revision left reconstructed breast. 5. Reconstruction of right and left inframammary folds via local advancement flaps, 92 square cm. 6. Implantation of reconstructive graft for right and left breast reconstruction. OPERATIVE INDICATIONS: The patient is a 59-year-old female who has undergone bilateral mastectomy with immediate reconstruction via tissue costume director for breast cancer. She has completed outpatient expansion and is returning for replacement of her expanders with insertion of silicone breast implants, revision of reconstructed breast due to significant deformities acquired from the mastectomy and expansion processes as well as reconstruction right left inframammary folds that have been effaced and lost due to the expansion. The patient understands potential risks and complications related to surgery, including but not limited to seroma, hematoma, wound healing problems, postoperative infection, among others. She has requested that I perform the surgery. OPERATIVE PROCEDURE SUMMARY: The patient is seen in the preoperative area. Markings were made, procedure reviewed, all questions answered. She was transported to the operating room, where she was placed in supine position. Following induction of general endotracheal anesthesia, the patient was prepped and draped in the usual fashion. The incisions for the right and left surgical procedures were now made in transverse fashion, including an elliptical outline of the central cicatrix present on each side. Surgery was initiated on the right side, making a semi-elliptical skin incision with a 10-blade scalpel, dividing the skin in full-thickness fashion, and then using cauterization to excise all scar tissue down to the muscle fascia. The scar tissue was sent to Pathology. Hemostasis was maintained with cautery. Skin and subcutaneous tissue flaps were now elevated off the muscle flap layer by dissection with cauterization to release the entire skin envelope due to contour irregularities and scar formation that had caused contour shape changes. Hemostasis was maintained with cautery. Irrigation was performed. Excellent hemostasis was present. The same portion of the procedure was now completed on the left side, excising the left-sided breast scar in elliptical fashion, first with a 10- blade scalpel and then using cauterization, and then skin and subcutaneous tissue flaps were elevated off the underlying muscle fascia. Extensive dissection was required here to release all contour irregularities, essentially the skin envelope from the muscle layer. Once completed, irrigation was performed. Hemostasis was excellent. I remained on left side and a lower transverse incision was made through the muscle flap tissue, exposing the costume director. Pipeline Technician was removed intact. The expansion cavity appeared normal with no granulation tissue and no exudates but some serous fluid. A complete capsulotomy incision was made where the capsule joined the chest wall. Multiple cruciate incisions were made through the capsular structure to release its tightness. Additional dissection was required medially to release tightness that had re-formed due to scar tissue formation. Hemostasis was maintained with cautery at end of this portion of procedure. The left inframammary fold was now reconstructed through the infracapsular incision area. The fold on the left and right side both measured the same at 23 cm transversely by 2 cm vertically. A skin and subcutaneous tissue flap was now elevated through the inferior capsulotomy incision on the left side using dissection with cautery, maintaining hemostasis with cautery. Once sufficient dissection was completed for elevation of the flap, the inframammary fold was advanced in cephalad fashion and secured to the chest wall in several discrete interrupted locations using 2-0 Vicryl, securing to the chest wall periosteal tissues, creating a discrete inframammary fold. Turning to the right side, the lower transverse incision was made through the muscle flap tissue, offsetting in a caudad fashion from the transverse skin incision. The costume director was exposed and removed intact. The expansion cavity appeared normal with no granulation tissue and no exudates but some serous fluid. Complete capsulotomy incision was made where the capsule joined the chest wall. Multiple cruciate incisions were made through the capsular structure again medially and superior. Tightness was present. Additional muscle flap dissection was required here to release the tightness and allow for an optimal result. Hemostasis was maintained with cautery. Excellent hemostasis was present. Irrigation was performed. The right inframammary fold was now elevated through the inferior capsulotomy incision on the right using cautery to dissect. Skin and subcutaneous tissue flap was elevated, measuring 23 x 2 square cm. Once sufficient dissection was performed, the flap was advanced in cephalad fashion and secured to the chest wall rib periosteal tissue in several interrupted discrete locations with 2-0 Vicryl. The inframammary folds appeared symmetric. Irrigation was performed. Several temporary breast implant sizers were opened on the field. Ultimately, a 605 mL sizer from the [employer] appeared optimal for the dimensional fit in each reconstructive cavity. With the sizers in, it was clear the muscle flap tissue would not close over the implant without distorting the implant. The sizer was removed and SurgiMend opened on the field. The SurgiMend measured 10 x 15 cm, thin and fenestrated, revitalized in room-temperature saline. Once ready, the SurgiMend was inserted in each reconstructive cavity and secured to just above the inframammary fold flap level with interrupted 3-0 Vicryl sutures in a modified inferior sling formation. With this completed, gloves were changed. Implants were opened on the field. The right-sided implant was placed first. Both implants were from the [employer] Inspira cohesive breast implant line by [employer], measuring 605 mL, reference number [id number]. The right-sided serial number was [id number] and the left-sided serial number was [id number]. The devices were only handled by the surgeon. They were irrigated with saline. The right-sided device was placed first under direct vision, inserted in the reconstructive cavity, and then the left-sided device was placed in the same fashion. With this completed, the muscle flap tissue on the right side was then advanced in a caudad fashion over the SurgiMend. The SurgiMend and muscle flap tissue were inset for complete coverage using interrupted 3-0 Vicryl. This was then completed on the left side in the same fashion. The skin incisions were now closed, approximating the deep dermis using inverted interrupted 4-0 Monocryl and completing superficial dermal/epidermal closure with running 5-0 Prolene on both sides. Surgical field was cleansed with saline and dried. Postoperative bandages were placed using sterile one-inch paper tape, Kerlix squares secured with paper tape then positioning a size 3 mammary support. The estimated blood loss was 100 mL. The patient was extubated in the operating room and transferred to the recovery room in good condition with stable vital signs. There were no complications. SELVIN / JUAN PABLO: [id number] /
== END 2020-04-01 17:24 | disposition home or self-care (01) ==
LOC: OR 10:20
PROVIDERS: ATTEND Plastic Surgery
DX: N65.1 Disproportion of reconstructed breast (principal); L90.5 Scar conditions and fibrosis of skin; Z85.3 Personal history of malignant neoplasm of breast; I10 Essential (primary) hypertension; E78.5 Hyperlipidemia, unspecified; J45.909 Unspecified asthma, uncomplicated; Z90.13 Acquired absence of bilateral breasts and nipples; Z88.5 Allergy status to narcotic agent; Z79.51 Long term (current) use of inhaled steroids; Z79.899 Other long term (current) drug therapy; Z98.891 History of uterine scar from previous surgery
CPT/HCPCS: 88305; 19342; 14301; 14302 ×2; C1789; C1763; J2250; J1100; J0690; J2405; J2001; J3010; J0330; J2704; J1170

== ENCOUNTER → 2020-06-26 | Outpatient (CLI) | payer BC, OTHER ==
[2020-06-26 12:55] VITALS: BP 134/80; PULSE 76; RESP 18; TEMP 98.4
--- NOTE | 2020-06-26 13:08 | P.PN ---
Subjective Progress Note Date: 06/26/20 Principal diagnosis: surveillance stage 0 breast cancer stage 0 breast cancer Cady is a 60-year-old white female who had a routine screening mammogram performed on 2419. This revealed numerous calcifications within the left breast. She was seen in consultation for this for Dr. Scott. She had an additional diagnostic studies the left breast performed which again revealed calcifications with some more focal area in the lower outer aspect of the left breast for which biopsy was recommended. No lesions of concern were identified in the right breast. She had left breast stereotactic core biopsy of 2 areas on . This revealed intermediate grade DCIS with comedonecrosis and a suspicious area of microinvasion at one of the sites. She underwent a bilateral mastectomy with immediate reconstruction November 13, 2019. The patient's pathology revealed in the right breast benign fibrocystic changes. In the left breast high-grade DCIS margins were negative. She had lymph nodes removed all negative for cancer. She did not have any hormonal, chemo, or radiation therapy. History of expanders removed and permanent implants placed. Complaints of any changes in her chest wall or lumps masses or nodules for which she is concerned. Caffiene: 12 oz/day down from 20 oz/day nicotine: none chocolate: intermittently Family history: 1. Mother: breast cancer bilateral both ER+, mets to liver, at 78 dx. in 60's 2. maternal grandfather: colon cancer Hormonal History: menarche; 16 , 1 miscarrage; age at 32, breast fed: yes menopause: 58 BCP: 15 years hormones: none Surgical History: 1. cervical cone 2. 3. bilateral mastectomy with reconstruction Medical History: none Social: smoke: none alcohol: occasional drugs: Occasional to sleep edible marijuana - Constitutional Constitutional: Denies chills, Denies fever - EENT Eyes: denies blurred vision, denies pain Ears: deny: decreased hearing, tinnitus Ears, nose, mouth and throat: Reports headache, Denies sore throat - Breasts Breasts: bilateral: as per HPI - Cardiovascular Cardiovascular: Denies chest pain, Denies shortness of breath - Respiratory Respiratory: Denies cough, - Gastrointestinal Gastrointestinal: Denies abdominal pain, Denies diarrhea, Denies nausea, Denies vomiting - Genitourinary (Female) Genitourinary: Denies dysuria, Denies hematuria - Menstruation Menstruation: Reports postmenopausal - Musculoskeletal Musculoskeletal: Denies myalgias - Integumentary Integumentary: Denies pruritus, Denies rash - Neurological Neurological: Denies numbness, Denies weakness - Psychiatric Psychiatric: Denies anxiety, Denies depression - Endocrine Endocrine: Denies fatigue, Denies weight change - Hematologic/Lymphatic Comment: none Objective - Vital Signs Vital signs: Vital Signs Temp 98.4 F 06/26/20 12:51 Pulse 76 06/26/20 12:51 Resp 18 06/26/20 12:51 BP 134/80 06/26/20 12:51 Pulse Ox 100 06/26/20 12:51 Intake & Output 06/25/20 06/26/20 06/26/20 18:59 06:59 18:59 Weight 84.368 kg - Exam BMI 31.9 - Constitutional General appearance: Present: obese - EENT Eyes: Present: EOMI ENT: Present: hearing grossly normal - Neck Neck: Present: normal ROM - Respiratory Respiratory: bilateral: CTA - Cardiovascular Rhythm: regular Heart sounds: normal: S1, S2 - Gastrointestinal General gastrointestinal: Present: normal bowel sounds, soft - Integumentary Integumentary: Present: normal turgor - Musculoskeletal Musculoskeletal: Present: gait normal - Psychiatric Psychiatric: Present: A&O x's 3, appropriate affect, intact judgment & insight - Additional findings Additional findings: breast exam: Examination of the chest wall bilaterally reveals bilateral reconstructed breast, no evidence of any recurrence on either side incisions clean and dry and well-healed Assessment and Plan Assessment: Impression: stage O left breast DCIS, right breast skin sparing mastectomy Plan: . Patient to follow up in 4 months for surveillance 2. Patient follow up sooner if any questions or concerns Cc: Dr. Scott encounter: 15 minutes, > 50% of time in planning and counselling
== END | disposition home or self-care (01) ==
LOC: WWCWWP 12:44
PROVIDERS: ATTEND Surgery
DX: Z53.9 Procedure and treatment not carried out, unspecified reason (principal)

== ENCOUNTER → 2020-11-20 | Outpatient (CLI) | payer OTHER ==
[2020-11-20 11:00] VITALS: BP 126/81; PULSE 74; RESP 16; TEMP 98
--- NOTE | 2020-11-20 11:12 | P.PN ---
Subjective Progress Note Date: 11/20/20 Principal diagnosis: Surveillance stage 0 breast cancer surveillance stage 0 breast cancer stage 0 breast cancer Cady is a 60-year-old white female who had a routine screening mammogram performed on 2419. This revealed numerous calcifications within the left breast. She was seen in consultation for this for Dr. Scott. She had an additional diagnostic studies the left breast performed which again revealed calcifications with some more focal area in the lower outer aspect of the left breast for which biopsy was recommended. No lesions of concern were identified in the right breast. She had left breast stereotactic core biopsy of 2 areas on . This reveal ed intermediate grade DCIS with comedonecrosis and a suspicious area of microinvasion at one of the sites. She underwent a bilateral mastectomy with immediate reconstruction November 13, 2019. The patient's pathology revealed in the right breast benign fibrocystic changes. In the left breast high-grade DCIS margins were negative. She had lymph nodes removed all negative for cancer. She did not have any hormonal, chemo, or radiation therapy. History of expanders removed and permanent implants placed. No complaints of any lumps masses or nodules of concern in her chest wall. The patient was seen on by Dr. Sanchez at that time it was felt that she did not need any adjuvant treatment and that she could be followed on an as needed basis by him. This note was reviewed. She had been on Aromasin preoperatively secondary to delay in surgery related to COVID and this was stopped. Caffiene: 12 oz/day down from 20 oz/day nicotine: none chocolate: intermittently Family history: 1. Mother: breast cancer bilateral both ER+, mets to liver, at 78 dx. in 60's 2. maternal grandfather: colon cancer Hormonal History: menarche; 16 , 1 miscarrage; age at 32, breast fed: yes menopause: 58 BCP: 15 years hormones: none Surgical History: 1. cervical cone 2. 3. bilateral mastectomy with reconstruction Medical History: CPAP for sleep apnea Social: smoke: none alcohol: occasional drugs: Occasional to sleep edible marijuana - Constitutional Constitutional: Denies chills, Denies fever - EENT Eyes: denies blurred vision, denies pain Ears: deny: decreased hearing, tinnitus Ears, nose, mouth and throat: Reports headache, Denies sore throat - Breasts Breasts: bilateral: as per HPI - Cardiovascular Cardiovascular: Denies chest pain, Denies shortness of breath - Respiratory Respiratory: Denies cough, - Gastrointestinal Gastrointestinal: Denies abdominal pain, Denies diarrhea, Denies nausea, Denies vomiting - Genitourinary (Female) Genitourinary: Denies dysuria, Denies hematuria - Menstruation Menstruation: Reports postmenopausal - Musculoskeletal Musculoskeletal: Denies myalgias - Integumentary Integumentary: Denies pruritus, Denies rash - Neurological Neurological: Denies numbness, Denies weakness - Psychiatric Psychiatric: Denies anxiety, Denies depression - Endocrine Endocrine: Denies fatigue, Denies weight change - Hematologic/Lymphatic Comment: none Objective - Vital Signs Vital signs: Intake & Output 11/19/20 11/20/20 11/20/20 18:59 06:59 18:59 Weight 84.368 kg - Exam BMI 31.9 - Constitutional General appearance: Present: cooperative - EENT Eyes: Present: EOMI ENT: Present: hearing grossly normal - Neck Neck: Present: normal ROM - Respiratory Respiratory: bilateral: CTA - Cardiovascular Rhythm: regular Heart sounds: normal: S1, S2 - Gastrointestinal General gastrointestinal: Present: soft - Integumentary Integumentary: Present: normal turgor - Musculoskeletal Musculoskeletal: Present: gait normal - Psychiatric Psychiatric: Present: A&O x's 3, appropriate affect, intact judgment & insight - Additional findings Additional findings: Breast exam: BRA: 38C inspection: Well-healed scars from prior mastectomy palpation: Right breast: Multi-positional exam no evidence of any cancer, no lumps masses or nodules of concern Right axilla: No adenopathy of concern Left breast: Multiple positional exam no evidence of any cancer, no lumps masses or nodules of concern Left axilla: No adenopathy of concern Assessment and Plan Assessment: Impression/plan: 1. Bilateral mastectomy secondary to grade 0 breast cancer no evidence of any recurrent disease 2. Patient does express some concern about not having any nipple areolar complex and difficulty having brought correctly we have talked about seeing a plastic surgeon for reconstruction of the nipple areolar complex and she is not interested in this. I will refer her to write him for pus for possible prosthesis 3. Follow-up in 6 months for physician exam; patient has declined this and states that she will come back in 1 year CC: Dr. Scott
== END ==
LOC: WWCWWP 10:33
PROVIDERS: ATTEND Surgery
DX: Z08 Encounter for follow-up examination after completed treatment for malignant neoplasm (principal); Z85.3 Personal history of malignant neoplasm of breast; Z90.13 Acquired absence of bilateral breasts and nipples; Z88.5 Allergy status to narcotic agent; Z87.891 Personal history of nicotine dependence

== ENCOUNTER 2021-08-07 11:33 | Day surgery (SDC) | payer OTHER ==
[2021-08-05 15:18] VITALS: BMI 32.5
[~2021-08-07 11:33] MED LIST changes: -DEXAMETHASONE SOD PHOSPHATE 10 MG/ML 1 ML VIAL IV ONE; -HYDROmorphone 0.5 MG/0.5 ML SYRINGE IVP PRN; -LIDOCAINE 1% (10MG/ML) FOR IV START INTRADERMA PRN; -MIDAZOLAM 2 MG/2 ML VIAL IV PRN; -ONDANSETRON 4 MG/2 ML VIAL IVP ONE
[2021-08-07 12:24] VITALS: RESP 16; TEMP 98.2
[2021-08-07] MEDS ORDERED: LIDOCAINE 1% (10MG/ML) FOR IV START INTRADERMA ONE (12:33)
[2021-08-07] MEDS ORDERED: PROPOFOL 10 MG/ML 20 ML VIAL IV ONE (13:10)
[2021-08-07] MEDS ORDERED: fentaNYL (PF) 50 MCG/ML 2 ML AMP ONE (13:10)
[2021-08-07] MEDS ORDERED: MIDAZOLAM 2 MG/2 ML VIAL ONE (13:10)
--- NOTE | 2021-08-07 13:28 | P.PCN ---
Date of Procedure: 08/07/21 Procedure(s) Performed: BRIEF HISTORY: Patient is a a 61-year-old pleasant white female scheduled for an elective colonoscopy as a part of screening for colon cancer. PROCEDURE PERFORMED: Colonoscopy. PREOPERATIVE DIAGNOSIS: Screening for colon cancer. IV sedation per Anesthesia. PROCEDURE: After informed consent was obtained, the patient, was brought into the endoscopy unit. IV sedation was administered by Anesthesia under continuous monitoring. Digital rectal examination was normal. Initially the Olympus CF-160 flexible video colonoscope was then inserted in the rectum, gradually advanced into the cecum without any difficulty. Careful examination was performed as the scope was gradually being withdrawn. Ileocecal valve and the appendiceal orifice were visualized and appeared normal. Prep was excellent. Mucosa of the cecum, ascending colon, transverse colon, descending colon, sigmoid colon, and rectum appeared normal. Retroflexion was performed in the rectum and no lesions were seen. The patient tolerated the procedure well. IMPRESSION: Normal-appearing colon from rectum to cecum no evidence of colorectal neoplasia . RECOMMENDATIONS: Findings of this examination were discussed with the patient as well as her family. She was advised to have a repeat screening colonoscopy in 10 years.
[2021-08-07 13:54] VITALS: BP 114/73; PULSE 75
== END 2021-08-07 14:12 | disposition home or self-care (01) ==
LOC: ORWHC2ENDO 11:33
PROVIDERS: ATTEND Internal Medicine Gastroenterology
DX: Z12.11 Encounter for screening for malignant neoplasm of colon (principal); I10 Essential (primary) hypertension; E78.5 Hyperlipidemia, unspecified; J45.909 Unspecified asthma, uncomplicated; Z85.3 Personal history of malignant neoplasm of breast; Z79.899 Other long term (current) drug therapy; Z88.5 Allergy status to narcotic agent
CPT/HCPCS: J2250; J3010; J2704; G0121

== ENCOUNTER → 2021-11-19 | Outpatient (CLI) | payer OTHER ==
[2021-11-19 09:52] VITALS: BP 143/83; PULSE 79; RESP 17; TEMP 98.1
--- NOTE | 2021-11-19 10:08 | P.PN ---
Subjective Progress Note Date: 11/19/21 Principal diagnosis: stage 0 left breast cancer surveillance stage 0 left breast cancer stage 0 breast cancer Cady is a 61-year-old white female who had a routine screening mammogram performed on 2419. This revealed numerous calcifications within the left breast. She was seen in consultation for this for Dr. Scott. She had an additional diagnostic studies the left breast performed which again revealed calcifications with some more focal area in the lower outer aspect of the left breast for which biopsy was recommended. No lesions of concern were identified in the right breast. She had left breast stereotactic core biopsy of 2 areas on . This revealed intermediate grade DCIS with comedonecrosis and a suspicious area of microinvasion at one of the sites. She underwent a bilateral mastectomy with immediate reconstruction November 13, 2019. The patient's pathology revealed in the right breast benign fibrocystic changes. In the left breast high-grade DCIS margins were negative. She had lymph nodes removed all negative for cancer. She did not have any hormonal, chemo, or radiation therapy. History of expanders removed and permanent implants placed. No complaints of any lumps masses or nodules of concern in her chest wall. The patient was seen on by Dr. Sanchez at that time it was felt that she did not need any adjuvant treatment and that she could be followed on an as needed. She had been on Aromasin preoperatively secondary to delay in surgery related to COVID and this was stopped. Caffiene: 12 oz/day down from 20 oz/day nicotine: none chocolate: intermittently Family history: 1. Mother: breast cancer bilateral both ER+, mets to liver, at 78 dx. in 60's 2. maternal grandfather: colon cancer Hormonal History: menarche; 16 , 1 miscarrage; age at 32, breast fed: yes menopause: 58 BCP: 15 years hormones: none Surgical History: 1. cervical cone 2. 3. bilateral mastectomy with reconstruction Medical History: CPAP for sleep apnea Social: smoke: none alcohol: occasional drugs: Occasional to sleep edible marijuana - Constitutional Constitutional: Denies chills, Denies fever - EENT Eyes: denies blurred vision, denies pain Ears: deny: decreased hearing, tinnitus Ears, nose, mouth and throat: Reports headache, Denies sore throat - Breasts Breasts: bilateral: as per HPI - Cardiovascular Cardiovascular: Denies chest pain, Denies shortness of breath - Respiratory Respiratory: Denies cough, - Gastrointestinal Gastrointestinal: Denies abdominal pain, Denies diarrhea, Denies nausea, Denies vomiting - Genitourinary (Female) Genitourinary: Denies dysuria, Denies hematuria - Menstruation Menstruation: Reports postmenopausal - Musculoskeletal Musculoskeletal: Denies myalgias - Integumentary Integumentary: Denies pruritus, Denies rash - Neurological Neurological: Denies numbness, Denies weakness - Psychiatric Psychiatric: Denies anxiety, Denies depression - Endocrine Endocrine: Denies fatigue, Denies weight change - Hematologic/Lymphatic Comment: none Objective - Vital Signs Vital signs: Vital Signs Temp 98.1 F 11/19/21 09:49 Pulse 79 11/19/21 09:49 Resp 17 11/19/21 09:49 BP 143/83 11/19/21 09:49 Pulse Ox 96 11/19/21 09:49 FiO2 Intake & Output 11/18/21 11/19/21 11/19/21 18:59 06:59 18:59 Weight 83.915 kg - Exam BMI 31.8 - Constitutional General appearance: Present: cooperative - EENT Eyes: Present: EOMI ENT: Present: hearing grossly normal - Neck Neck: Present: normal ROM - Respiratory Respiratory: bilateral: CTA - Cardiovascular Rhythm: regular Heart sounds: normal: S1, S2 - Gastrointestinal General gastrointestinal: Present: soft - Integumentary Integumentary: Present: normal turgor - Musculoskeletal Musculoskeletal: Present: gait normal - Psychiatric Psychiatric: Present: A&O x's 3, appropriate affect, intact judgment & insight - Additional findings Additional findings: Breast Exam: BRA: 38C Inspection: bilateral mastectomy and reconstruction palpation: right breast: Implant in place, chest wall no evidence of cancer Right axilla: No adenopathy of concern Left breast: Implant in place, chest wall no evidence of cancer Left axilla: No adenopathy of concern Assessment and Plan Assessment: Impression: Patient status post bilateral mastectomy for grade is 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 Scott
== END ==
LOC: WWCWWP 09:43
PROVIDERS: ATTEND Surgery
DX: Z08 Encounter for follow-up examination after completed treatment for malignant neoplasm (principal); Z85.3 Personal history of malignant neoplasm of breast; Z90.13 Acquired absence of bilateral breasts and nipples

== ENCOUNTER → 2022-12-30 | Outpatient (CLI) | payer OTHER ==
[2022-12-30 15:47] VITALS: BP 151/81; PULSE 79; RESP 17; TEMP 98.3
--- NOTE | 2022-12-30 16:02 | P.PN ---
Subjective Progress Note Date: 12/30/22 stage 0 left breast cancer surveillance stage 0 left breast cancer stage 0 breast cancer Cady is a 61-year-old white female who had a routine screening mammogram performed on 2419. This revealed numerous calcifications within the left breast. She was seen in consultation for this for Dr. Scott. She had an additional diagnostic studies the left breast performed which again revealed calcifications with some more focal area in the lower outer aspect of the left breast for which biopsy was recommended. No lesions of concern were identified in the right breast. She had left breast stereotactic core biopsy of 2 areas on . This revealed intermediate grade DCIS with comedonecrosis and a suspicious area of microinvasion at one of the sites. She underwent a bilateral mastectomy with immediate reconstruction November 13, 2019. The patient's pathology revealed in the right breast benign fibrocystic changes. In the left breast high-grade DCIS margins were negative. She had lymph nodes removed all negative for cancer. She did not have any hormonal, chemo, or radiation therapy. History of expanders removed and permanent implants placed. No complaints of any lumps masses or nodules of concern in her chest wall. The patient was seen on by Dr. Sanchez at that time it was felt that she did not need any adjuvant treatment and that she could be followed on an as needed. She had been on Aromasin preoperatively secondary to delay in surgery related to COVID and this was stopped. 12-30-22 Patient has no complaints at this time. She is not complaining of any new lumps masses or nodules of concern in either breast. Caffiene: 12 oz/day down from 20 oz/day nicotine: none chocolate: intermittently Family history: 1. Mother: breast cancer bilateral both ER+, mets to liver, at 78 dx. in 60's 2. maternal grandfather: colon cancer Hormonal History: menarche; 16 , 1 miscarrage; age at 32, breast fed: yes menopause: 58 BCP: 15 years hormones: none Surgical History: 1. cervical cone 2. 3. bilateral mastectomy with reconstruction Medical History: CPAP for sleep apnea Social: smoke: none alcohol: occasional drugs: Occasional to sleep edible marijuana - Constitutional Constitutional: Denies chills, Denies fever - EENT Eyes: denies blurred vision, denies pain Ears: deny: decreased hearing, tinnitus Ears, nose, mouth and throat: Reports headache, Denies sore throat - Breasts Breasts: bilateral: as per HPI - Cardiovascular Cardiovascular: Denies chest pain, Denies shortness of breath - Respiratory Respiratory: Denies cough, - Gastrointestinal Gastrointestinal: Denies abdominal pain, Denies diarrhea, Denies nausea, Denies vomiting - Genitourinary (Female) Genitourinary: Denies dysuria, Denies hematuria - Menstruation Menstruation: Reports postmenopausal - Musculoskeletal Musculoskeletal: Denies myalgias - Integumentary Integumentary: Denies pruritus, Denies rash - Neurological Neurological: Denies numbness, Denies weakness - Psychiatric Psychiatric: Denies anxiety, Denies depression - Endocrine Endocrine: Denies fatigue, Denies weight change - Hematologic/Lymphatic Comment: none Objective - Vital Signs Vital signs: Vital Signs Temp 98.3 F 12/30/22 15:45 Pulse 79 12/30/22 15:45 Resp 17 12/30/22 15:45 BP 151/81 12/30/22 15:45 Pulse Ox 97 12/30/22 15:45 FiO2 Intake & Output 12/29/22 12/30/22 12/30/22 18:59 06:59 18:59 Weight 86.183 kg - Constitutional General appearance: Present: cooperative - EENT Eyes: Present: EOMI ENT: Present: hearing grossly normal - Neck Neck: Present: normal ROM - Respiratory Respiratory: bilateral: CTA - Cardiovascular Heart sounds: normal: S1, S2 - Gastrointestinal General gastrointestinal: Present: soft - Integumentary Integumentary: Present: normal turgor - Musculoskeletal Musculoskeletal: Present: gait normal - Psychiatric Psychiatric: Present: A&O x's 3, appropriate affect, intact judgment & insight - Additional findings Additional findings: Breast Exam: BRA: 38C Inspection: bilateral mastectomy and reconstruction palpation: right breast: Implant in place, chest wall no evidence of cancer Right axilla: No adenopathy of concern Left breast: Implant in place, chest wall no evidence of cancer Left axilla: No adenopathy of concern Assessment and Plan Assessment: Impression: Patient status post bilateral mastectomy for grade 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 Scott
== END ==
LOC: WWCWWP 15:25
PROVIDERS: ATTEND Surgery
DX: R92.8 Other abnormal and inconclusive findings on diagnostic imaging of breast (principal); Z90.13 Acquired absence of bilateral breasts and nipples; Z80.3 Family history of malignant neoplasm of breast; G47.30 Sleep apnea, unspecified; Z99.89 Dependence on other enabling machines and devices; Z79.811 Long term (current) use of aromatase inhibitors; Z88.5 Allergy status to narcotic agent; Z87.891 Personal history of nicotine dependence

== ENCOUNTER → 2023-12-30 | Outpatient (CLI) | payer OTHER ==
--- NOTE | 2023-12-30 16:01 | P.PN ---
Subjective Progress Note Date: 12/30/23 Principal diagnosis: DCIS left breast 12/30/23 stage 0 left breast cancer surveillance stage 0 left breast cancer stage 0 breast cancer Cady is a 63-year-old female who had a routine screening mammogram performed on 2419. This revealed numerous calcifications within them the left breast. She was seen in consultation for this and a stereotactic core biopsy of 2 areas in the breast was performed and [id number]. This revealed intermediate grade DCIS with comedonecrosis and the suspicious area of microinvasion at one of the sites. She underwent a bilateral mastectomy with immediate reconstruction on 11/13/2019. The patient's pathology revealed in the right breast benign fibrocystic changes. In the left breast high-grade DCIS margins were negative. She had lymph nodes removed all negative for cancer. She did not have any hormonal chemo or radiation therapy. She has had her expanders removed and permanent implants placed. She was seen by [place]. Sanchez [place] [id number] and at that time was felt she did not need any adjuvant treatment. She had been on Aromasin preoperatively secondary to delay in surgery related to covert. This was stopped. she is not complaining of any lumps masses or nodules of concern on either chest wall. Caffiene: 12 oz/day down from 20 oz/day nicotine: none chocolate: intermittently Family history: 1. Mother: breast cancer bilateral both ER+, mets to liver, at 78 dx. in 60's 2. maternal grandfather: colon cancer Hormonal History: menarche; 16 , 1 miscarrage; age at 32, breast fed: yes menopause: 58 BCP: 15 years hormones: none Surgical History: 1. cervical cone 2. 3. bilateral mastectomy with reconstruction Medical History: CPAP for sleep apnea Social: smoke: none alcohol: occasional drugs: Occasional to sleep edible marijuana - Constitutional Constitutional: Denies chills, Denies fever - EENT Eyes: denies blurred vision, denies pain Ears: deny: decreased hearing, tinnitus Ears, nose, mouth and throat: Reports headache, Denies sore throat - Breasts Breasts: bilateral: as per HPI - Cardiovascular Cardiovascular: Denies chest pain, Denies shortness of breath - Respiratory Respiratory: Denies cough, - Gastrointestinal Gastrointestinal: Denies abdominal pain, Denies diarrhea, Denies nausea, Denies vomiting - Genitourinary (Female) Genitourinary: Denies dysuria, Denies hematuria - Menstruation Menstruation: Reports postmenopausal - Musculoskeletal Musculoskeletal: Denies myalgias - Integumentary Integumentary: Denies pruritus, Denies rash - Neurological Neurological: Denies numbness, Denies weakness - Psychiatric Psychiatric: Denies anxiety, Denies depression - Endocrine Endocrine: Denies fatigue, Denies weight change - Hematologic/Lymphatic Comment: none Objective - Constitutional General appearance: Present: cooperative - EENT Eyes: Present: EOMI ENT: Present: hearing grossly normal - Neck Neck: Present: normal ROM - Respiratory Respiratory: bilateral: CTA - Cardiovascular Heart sounds: normal: S1, S2 - Integumentary Integumentary: Present: normal turgor - Musculoskeletal Musculoskeletal: Present: gait normal - Psychiatric Psychiatric: Present: A&O x's 3, appropriate affect, intact judgment & insight - Additional findings Additional findings: Breast Exam: BRA: 38C Inspection: bilateral mastectomy and reconstruction palpation: right breast: Implant in place, chest wall no evidence of cancer Right axilla: No adenopathy of concern Left breast: Implant in place, chest wall no evidence of cancer Left axilla: No adenopathy of concern Assessment and Plan Assessment: Impression: Patient status post bilateral mastectomy for 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 Scott
[2023-12-30 16:04] VITALS: BP 135/79; PULSE 84; RESP 16; TEMP 98.3
== END ==
LOC: WWCWWP 15:50
PROVIDERS: ATTEND Surgery
DX: D05.12 Intraductal carcinoma in situ of left breast (principal); N60.11 Diffuse cystic mastopathy of right breast; N60.12 Diffuse cystic mastopathy of left breast; Z80.3 Family history of malignant neoplasm of breast; Z90.13 Acquired absence of bilateral breasts and nipples; Z88.5 Allergy status to narcotic agent; Z87.891 Personal history of nicotine dependence